=== PATIENT | female | born 1970 ===

== ENCOUNTER 2021-11-03 13:25 | Outpatient (CLI) | payer BC ==
[2021-11-03] MEDS ORDERED: LIDOCAINE (4%) 40 MG/ML TOPICAL SOLN 50 ML BOTTLE TP ONE (13:37)
== END 2021-11-03 13:26 | disposition home or self-care (01) ==
LOC: WOUND 13:25
PROVIDERS: ATTEND Surgery
DX: S91.301A Unspecified open wound, right foot, initial encounter (principal); S81.801A Unspecified open wound, right lower leg, initial encounter; I87.2 Venous insufficiency (chronic) (peripheral); Z79.899 Other long term (current) drug therapy; X58.XXXA Exposure to other specified factors, initial encounter; Y93.89 Activity, other specified; Y92.69 Other specified industrial and construction area as the place of occurrence of the external cause; Y99.8 Other external cause status

== ENCOUNTER 2021-11-17 12:53 | Outpatient (CLI) | payer BC ==
[2021-11-17] MEDS ORDERED: LIDOCAINE (4%) 40 MG/ML TOPICAL SOLN 50 ML BOTTLE TP ONE (12:55)
[2021-11-17] MEDS ORDERED: SILVER NITRATE APPLICATOR 1 EA TP ONE (13:24)
== END 2021-11-17 12:54 | disposition home or self-care (01) ==
LOC: WOUND 12:53
PROVIDERS: ATTEND Surgery
DX: S91.301D Unspecified open wound, right foot, subsequent encounter (principal); S81.801D Unspecified open wound, right lower leg, subsequent encounter; I87.2 Venous insufficiency (chronic) (peripheral); Z79.899 Other long term (current) drug therapy; X58.XXXD Exposure to other specified factors, subsequent encounter

== ENCOUNTER 2021-12-01 08:10 | Outpatient (CLI) | payer BC ==
[2021-12-01] MEDS ORDERED: LIDOCAINE (4%) 40 MG/ML TOPICAL SOLN 50 ML BOTTLE TP SCH (09:00)
== END 2021-12-01 08:11 | disposition home or self-care (01) ==
LOC: WOUND 08:10
PROVIDERS: ATTEND Surgery
DX: S91.301D Unspecified open wound, right foot, subsequent encounter (principal); S81.801D Unspecified open wound, right lower leg, subsequent encounter; I87.2 Venous insufficiency (chronic) (peripheral); Z79.899 Other long term (current) drug therapy; X58.XXXD Exposure to other specified factors, subsequent encounter

== ENCOUNTER 2021-12-15 08:41 | Outpatient (CLI) | payer BC ==
[2021-12-15] MEDS ORDERED: LIDOCAINE (4%) 40 MG/ML TOPICAL SOLN 50 ML BOTTLE TP ONE (08:55)
== END 2021-12-15 08:42 | disposition home or self-care (01) ==
LOC: WOUND 08:41
PROVIDERS: ATTEND Surgery
DX: S91.301D Unspecified open wound, right foot, subsequent encounter (principal); S81.801D Unspecified open wound, right lower leg, subsequent encounter; I87.2 Venous insufficiency (chronic) (peripheral); Z79.899 Other long term (current) drug therapy; X58.XXXD Exposure to other specified factors, subsequent encounter
CPT/HCPCS: 99214; G0463

== ENCOUNTER 2021-12-29 08:27 | Outpatient (CLI) | payer BC | END 2021-12-29 08:28 | disposition home or self-care (01) | LOC: WOUND 08:27 | PROVIDERS: ATTEND Surgery | DX: S91.301D Unspecified open wound, right foot, subsequent encounter (principal); S81.801D Unspecified open wound, right lower leg, subsequent encounter; I87.2 Venous insufficiency (chronic) (peripheral); Z79.899 Other long term (current) drug therapy; X58.XXXD Exposure to other specified factors, subsequent encounter | CPT/HCPCS: 99213; G0463 ==